=== PATIENT | female | born 1965 | race American Indian/Alaskan Native ===

== ENCOUNTER 2018-02-24 15:40 | Emergency (ER) | payer OTHER, BC ==
[2018-02-24] MEDS ORDERED: MOTRIN PO ONE (17:26)
--- NOTE | 2018-02-24 17:28 | Emergency Department Report ---
Blank Doc - Documentation Documentation: Patient is a 52-year-old black female who is presenting status post fall. Patient states that she was helping move a stretcher in the stretcher were ran over her first 2 toes. Patient then fell braced herself with her left wrist. Patient is having pain in both of these areas. There was no head and is no loss of consciousness. She will have x-rays performed rule out fracture
--- NOTE | 2018-02-24 19:24 | XRay Report ---
FINAL REPORT PROCEDURE: XR FOOT 3+V RT TECHNIQUE: RIGHT foot radiographs, AP, lateral, and oblique views. CPT 01928 HISTORY: Crush injury. COMPARISON: No prior studies are available for comparison. FINDINGS: Fracture (s) and/or Dislocation(s): Lucency through the 5th metatarsal head with well corticated margins. Mild medial displacement of the distal fracture fragment in relation to the proximal fracture fragment. Alignment: Normal . Joint space(s): Normal . Soft tissues: Normal . Bone mineralization: Normal . Foreign bodies: None . Calcaneal spurring: Plantar spur. IMPRESSION: Posttraumatic deformity of the 5th metatarsal head, although may be chronic with an element of mal/nonunion. Consider clinical correlation.
--- NOTE | 2018-02-24 19:41 | XRay Report ---
FINAL REPORT PROCEDURE: XR WRIST 2V LT TECHNIQUE: LEFT wrist radiographs, AP and lateral views. HISTORY: Fall injury. COMPARISON: No prior studies are available for comparison. FINDINGS: Fracture(s)and/or Dislocation(s): Subtle lucency about the hook of the hamate. Subtle lucency through the midbody of the scaphoid. Alignment: Normal. Joint space(s): Mild narrowing of the 1st carpometacarpal joint. Soft tissues: Normal. Bone mineralization: Normal. Foreign bodies: None. IMPRESSION: Subtle lucency through the hook of the hamate and the midbody of the scaphoid, could be related to patient positioning. Limited portable radiographs. Recommend dedicated repeat full wrist series or CT scan for further characterization if there is concern for subtle fractures. Mild degenerative change.
[2018-02-24 20:00] VITALS: BP 116/73
--- NOTE | 2018-02-24 20:07 | Emergency Department Report ---
ED Lower Extremity HPI - General Chief Complaint: Extremity Injury, Lower Stated Complaint: FOOT/WRIST INJURY Time Seen by Provider: 02/24/18 17:26 Source: patient Mode of arrival: Wheelchair Limitations: No Limitations - History of Present Illness Initial Comments: Patient is a 52-year-old black female who is presenting status post fall. Patient states that she was helping move a stretcher in the stretcher were ran over her first 2 toes. Patient then fell braced herself with her left wrist. Patient is having pain in both of these areas. Patient reports that this happened while she was at work today. She denies any remote trauma to her foot. She reports no past medical history. Patient ports most of the pain is on that great toe of her right foot. She describes the pain as being in tingling burning and aching. Reports the pain is constant but since she's had that ibuprofen is now intermittent with putting her foot and her shoe. Complaint: foot injury (right) Injury: Foot: Left Place: work Severity scale (0 -10): 7 Improves With: NSAID Worsens With: weight bearing Context: direct blow Other Symptoms: loss of consciousness - Related Data Previous Rx's Medication Instructions Recorded Last Taken Type Cephalexin [Keflex] 500 mg PO BID #14 capsule 02/24/18 Unknown Rx Ibuprofen [Motrin 800 MG tab] 800 mg PO Q8HR PRN #30 tablet 02/24/18 Unknown Rx Allergies Allergy/AdvReac Type Severity Reaction Status Date / Time No Known Allergies Allergy Unverified 09/13/15 07:59 ED Review of Systems ROS: Stated complaint: FOOT/WRIST INJURY Other details as noted in HPI Constitutional: denies: chills, fever Cardiovascular: denies: chest pain, palpitations Endocrine: no symptoms reported Gastrointestinal: denies: abdominal pain, nausea, diarrhea Musculoskeletal: denies: back pain, joint swelling, arthralgia Neurological: denies: headache, weakness, paresthesias ED Past Medical Hx - Past Medical History Previous Medical History?: No - Surgical History Hx Appendectomy: Yes - Social History Smoking Status: Never Smoker Substance Use Type: None - Medications Home Medications: Home Medications Medication Instructions Recorded Confirmed Last Taken Type Cephalexin [Keflex] 500 mg PO BID #14 capsule 02/24/18 Unknown Rx Ibuprofen [Motrin 800 MG tab] 800 mg PO Q8HR PRN #30 tablet 02/24/18 Unknown Rx ED Physical Exam - General Limitations: No Limitations General appearance: alert, in no apparent distress - Head Head exam: Present: atraumatic, normocephalic - Eye Eye exam: Present: normal appearance - ENT ENT exam: Present: mucous membranes moist - Expanded Lower Extremity Exam Right Hip exam: Present: normal inspection Upper Leg exam: Present: normal inspection Knee exam: Present: normal inspection Lower Leg exam: Present: normal inspection Ankle exam: Present: normal inspection Foot/Toe exam: Present: full ROM, tenderness (first metatarpal), abrasion ( great toe cuticle) ED Course Vital Signs 02/24/18 02/24/18 16:39 19:51 Temperature 98.1 F 98.2 F Pulse Rate 81 69 Respiratory 18 18 Rate Blood Pressure 120/77 116/73 Blood Pressure 120/77 [Left] O2 Sat by Pulse 9 L 98 Oximetry ED Lower Extremity MDM - Radiology Data Radiology results: report reviewed, image reviewed FINDINGS: Fracture(s)and/or Dislocation(s): Subtle lucency about the hook of the hamate. Subtle lucency through the midbody of the scaphoid. Alignment: Normal. Joint space(s): Mild narrowing of the 1st carpometacarpal joint. Soft tissues: Normal. Bone mineralization: Normal. Foreign bodies: None. IMPRESSION: Subtle lucency through the hook of the hamate and the midbody of the scaphoid, could be related to patient positioning. Limited portable radiographs. Recommend dedicated repeat full wrist series or CT scan for further characterization if there is concern for subtle fractures. Mild degenerative change. Transcribed By: MAEVE Dictated By: JV MOON MD Electronically Authenticated By: JV MOON MD Signed Date/Time: 02/24/181936 DD/ 36 TD/TT: 02/24/181936 FINDINGS: Fracture (s) and/or Dislocation(s): Lucency through the 5th metatarsal head with well corticated margins. Mild medial displacement of the distal fracture fragment in relation to the proximal fracture fragment. Alignment: Normal . Joint space(s): Normal . Soft tissues: Normal . Bone mineralization: Normal . Foreign bodies: None . Calcaneal spurring: Plantar spur. IMPRESSION: Posttraumatic deformity of the 5th metatarsal head, although may be chronic with an element of mal/nonunion. Consider clinical correlation. Transcribed By: [facility] Dictated By: JV MOON MD Electronically Authenticated By: JV MOON MD Signed Date/Time: 02/24/181920 DD/ 20 TD/TT: 02/24/181920 - Medical Decision Making He has been evaluated but this provider fast track. 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 Patient denies any pain or tenderness to that area. Discussed the patient that her wrists x-ray was negative for any acute fractures. Discussed the patient I will discharge her on antibiotics since she has an abrasion to her great toe as well as place her on ibuprofen for pain. Discussed patient with take her out of work for the next 24-48 hours. Discussed the patient to elevate her foot place ice to take medication and follow-up with her primary care provider if symptoms persist or gets worse. Patient verbalized understanding. Critical care attestation.: If time is entered above; I have spent that time in minutes in the direct care of this critically ill patient, excluding procedure time. ED Disposition Clinical Impression: Acute pain of left wrist Injury of right great toe Qualifiers: Encounter type: initial encounter Qualified Code(s): S99.921A - Unspecified injury of right foot, initial encounter Abrasion of toe of right foot Qualifiers: Encounter type: initial encounter Qualified Code(s): S90.414A - Abrasion, right lesser toe(s), initial encounter Disposition: TO HOME OR SELFCARE Is pt being admited?: No Does the pt Need Aspirin: No Condition: Stable Instructions: Arthralgia (ED), Abrasion (ED), Wrist Injury (ED) Additional Instructions: Please complete antibiotics as prescribed. Please take ibuprofen as prescribed. Please follow-up with her primary care provider if symptoms persist or gets worse. Prescriptions: Cephalexin [Keflex] 500 mg PO BID #14 capsule Ibuprofen [Motrin 800 MG tab] 800 mg PO Q8HR PRN #30 tablet PRN Reason: Pain Referrals: PRIMARY MD FRANCISCO JAVIER [Primary Care Provider] - 3-5 Days JANELL EVANS MD [Staff Physician] - 3-5 Days Forms: Work/School Release Form(ED)
== END 2018-02-24 20:40 | disposition home or self-care (01) ==
LOC: ED 15:40
DX: S90.414A Abrasion, right lesser toe(s), initial encounter (principal); S99.921A Unspecified injury of right foot, initial encounter; Z90.49 Acquired absence of other specified parts of digestive tract; X58.XXXA Exposure to other specified factors, initial encounter; Y93.89 Activity, other specified; Y99.8 Other external cause status; Y92.89 Other specified places as the place of occurrence of the external cause

== ENCOUNTER 2018-04-10 08:35 | Outpatient (CLI) | payer BC ==
--- NOTE | 2018-04-10 13:03 | Mammography Report ---
BILATERAL DIGITAL SCREENING MAMMOGRAM with CAD: 04/10/18 08:35:00 CLINICAL: Routine screening. COMPARISON: 09/13/15 FINDINGS: There are bilateral scattered areas of fibroglandular density.No mass, architectural distortion or suspicious calcifications. IMPRESSION: No mammographic evidence of malignancy. BI-RADS CATEGORY: 1 -- Negative RECOMMENDATION: Routine mammographic screening in one year. COMMENT: Patient follow-up letters are generated by our [facility] application.
== END 2018-04-10 08:36 | disposition home or self-care (01) ==
LOC: MAMMO 08:35
PROVIDERS: ATTEND Family Medicine
DX: Z12.31 Encounter for screening mammogram for malignant neoplasm of breast (principal); Z90.49 Acquired absence of other specified parts of digestive tract
CPT/HCPCS: 77067

== ENCOUNTER 2018-10-31 12:44 | Emergency (ER) | payer BC ==
[2018-10-31 13:05] VITALS: BP 130/82
[2018-10-31 14:01] LABS: Bilirubin,Urine NEG (Negative); Blood,Urine NEG (Negative); Color,Urine Yellow (Yellow); Mucus,Urine FEW /HPF; WBC,Urine < 1.0 /HPF (0.0-6.0)
--- NOTE | 2018-10-31 14:31 | Emergency Department Report ---
ED Back Pain/Injury HPI - General Chief Complaint: Back Pain/Injury Stated Complaint: BACK PAIN EXTREME Time Seen by Provider: 10/31/18 14:03 Source: patient Limitations: No Limitations - History of Present Illness Initial Comments: Mrs. Meyers is a healthy 53-year-old female who has had back pain for the last 10 months. 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 She has worked at [employer] for 11 years. She has been a nurse for over 20 years. She's had lower back pain which has resolved with ibuprofen and Tylenol normally the past. She takes the medications every few days especially before shift. However over the last week ibuprofen Tylenol did not completely relieve the pain. The medications provided some relief. Hot shower also provided some relief. Pain is currently 5 out of 10. Located in lower central back with radiation to right and left flank. More so on the right. She denies leg weakness. She denies fever. She denies weight loss or trauma. She denies bowel or bladder incontinence. No history of motor vehicle accidents. However she does recall a fall on the job in January related to a toe injury. Due to social stressors dealing with family matters, she has gained 30 pounds in the last 1 to 1-1/2 years. Her previous PCP was Dr. Mccoy. Now she is in search for a new primary care physician. She has seen orthopedic surgeon Dr. Braxton the past for her right toe injury. MD Complaint: back pain -: Gradual, days(s) (5), month(s) (10) Similar Symptoms Previously: Yes Place: home, work Radiation: flank Severity: moderate Severity scale (0 -10): 5 Quality: aching Consistency: constant, intermittent Improves With: medication, other (heat) Worsens With: movement Associated Symptoms: denies other symptoms - Related Data Previous Rx's Medication Instructions Recorded Last Taken Type Cephalexin [Keflex] 500 mg PO BID #14 capsule 02/24/18 Unknown Rx Ibuprofen [Motrin 800 MG tab] 800 mg PO Q8HR PRN #30 tablet 02/24/18 Unknown Rx Cyclobenzaprine [Flexeril] 10 mg PO TID PRN #20 tablet 10/31/18 Unknown Rx HYDROcodone/APAP 5-325 [Eskridge 1 each PO Q6HR PRN #10 tablet 10/31/18 Unknown Rx 5/325] Allergies Allergy/AdvReac Type Severity Reaction Status Date / Time No Known Allergies Allergy Verified 10/31/18 13:01 ED Review of Systems ROS: Stated complaint: BACK PAIN EXTREME Other details as noted in HPI Comment: All other systems reviewed and negative Constitutional: denies: fever, malaise Respiratory: denies: cough Cardiovascular: denies: chest pain Gastrointestinal: denies: abdominal pain ED Past Medical Hx - Past Medical History Previous Medical History?: No - Surgical History Past Surgical History?: Yes Hx Appendectomy: Yes - Family History Family history: other (noncontributory to today's presentation) - Social History Smoking Status: Never Smoker Substance Use Type: None - Medications Home Medications: Home Medications Medication Instructions Recorded Confirmed Last Taken Type Cephalexin [Keflex] 500 mg PO BID #14 capsule 02/24/18 Unknown Rx Ibuprofen [Motrin 800 MG tab] 800 mg PO Q8HR PRN #30 tablet 02/24/18 Unknown Rx Cyclobenzaprine [Flexeril] 10 mg PO TID PRN #20 tablet 10/31/18 Unknown Rx HYDROcodone/APAP 5-325 [Eskridge 1 each PO Q6HR PRN #10 tablet 10/31/18 Unknown Rx 5/325] ED Physical Exam - General Limitations: No Limitations General appearance: alert, in no apparent distress - Head Head exam: Present: atraumatic, normocephalic - Eye Eye exam: Present: normal appearance - ENT ENT exam: Present: mucous membranes moist - Neck Neck exam: Present: normal inspection - Respiratory Respiratory exam: Present: normal lung sounds bilaterally. Absent: respiratory distress, wheezes, rales, rhonchi - Cardiovascular Cardiovascular Exam: Present: regular rate, normal rhythm, normal heart sounds. Absent: systolic murmur, diastolic murmur, rubs, gallop - GI/Abdominal GI/Abdominal exam: Present: soft, normal bowel sounds. Absent: distended, tenderness, guarding, rebound - Extremities Exam Extremities exam: Present: normal inspection - Back Exam Back exam: Present: full ROM, muscle spasm. Absent: tenderness, CVA tenderness (R), CVA tenderness (L), paraspinal tenderness, vertebral tenderness - Neurological Exam Neurological exam: Present: alert, oriented X3 - Expanded Neurological Exam Expanded Motor strength exam: RLE: 5, LLE: 5 - Psychiatric Psychiatric exam: Present: normal affect, normal mood - Skin Skin exam: Present: warm, dry, intact, normal color. Absent: rash ED Course Vital Signs 10/31/18 13:02 Temperature 98.0 F Pulse Rate 86 Respiratory 16 Rate Blood Pressure 130/82 O2 Sat by Pulse 100 Oximetry ED Medical Decision Making - Medical Decision Making Mrs. Cody is a very pleasant 53-year-old female who has had 10 months of lower back pain which has worsened over the last several days. I am concerned for lumbar degenerative disc disease. Also concern for lumbar strain due to repetitive lifting bending on the job. Due to 30 pound weight gain over the last 1-1.5 years, she would benefit from physical therapy including core strengthening exercise. I strongly encouraged evaluation by Dr. Braxton in the outpatient setting. I have prescribed Eskridge Flexeril. Today in the ED she received Toradol and Eskridge. Critical care attestation.: If time is entered above; I have spent that time in minutes in the direct care of this critically ill patient, excluding procedure time. ED Disposition Clinical Impression: Back pain Disposition: - TO HOME OR SELFCARE Is pt being admited?: No Does the pt Need Aspirin: No Condition: Stable Instructions: Acute Low Back Pain (ED) Prescriptions: Cyclobenzaprine [Flexeril] 10 mg PO TID PRN #20 tablet PRN Reason: Muscle Spasm HYDROcodone/APAP 5-325 [Eskridge 5/325] 1 each PO Q6HR PRN #10 tablet PRN Reason: Pain Referrals: JANELL BRAXTON MD [Staff Physician] - 3-5 Days CED MADRIGAL MD [Staff Physician] - 3-5 Days
[2018-10-31] MEDS ORDERED: NORCO 5/325 PO ONE (14:32)
[2018-10-31] MEDS ORDERED: TORADOL IM ONE (14:32)
== END 2018-10-31 14:46 | disposition home or self-care (01) ==
LOC: ED 12:44
DX: M54.5 Low back pain (principal); Z90.49 Acquired absence of other specified parts of digestive tract
CPT/HCPCS: 81001; 96372; 99283; J1885

== ENCOUNTER 2018-11-10 16:04 | Outpatient (CLI) | payer BC ==
--- NOTE | 2018-11-10 17:42 | XRay Report ---
FINAL REPORT EXAM: XRAY LUMBAR COMPLETE HISTORY: low back pain TECHNIQUE: Lumbar spine five views PRIORS: None. FINDINGS: Vertebral bodies demonstrate normal height and alignment. The disc spaces are within normal limits. There is no evidence of spondylolisthesis. Transverse and spinous processes are intact SI joints are unremarkable. IMPRESSION: Negative lumbar spine series
== END 2018-11-10 16:05 | disposition home or self-care (01) ==
LOC: XRAY 16:04
PROVIDERS: ATTEND Orthopaedic Surgery
DX: M54.5 Low back pain (principal); Z90.49 Acquired absence of other specified parts of digestive tract
CPT/HCPCS: 72110

== ENCOUNTER 2020-09-18 06:11 | Day surgery (SDC) | payer BC ==
[~2020-09-18 06:11] MED LIST: ceFAZolin/Water 2 GM/20 ML 2 GM/20 ML SYRINGE IV NR
[2020-09-18] MEDS ORDERED: LIDOCAINE 1%/EPINEPHRINE 1:100,000 VIAL (20 ML) INFILTRATI ONE ×2 (06:29→08:42)
[2020-09-18] MEDS ORDERED: BACTERIOSTATIC SODIUM CHLORIDE 0.9% 30 ML VIAL INFILTRATI ONE (06:42)
[2020-09-18] MEDS ORDERED: LACTATED RINGERS 1,000 ML ONE (06:43)
[2020-09-18] MEDS ORDERED: ONDANSETRON 4 MG/2 ML INJ IV PRN (07:16)
[2020-09-18] MEDS ORDERED: HYDROmorphone 1 MG/1 ML INJ IV PRN ×2 (07:16)
--- NOTE | 2020-09-18 07:17 | Anesthesia Day of Surgery ---
Anesthesia Day of Surgery - Day of Surgery Patient Examined: Yes Patient H&P Reviewed: Yes Patient is NPO: Yes
--- NOTE | 2020-09-18 07:18 | Anesthesia Consultation ---
Anesthesia Consult and Med Hx Date of service: 09/18/20 - Airway Anesthetic Teeth Evaluation: Caps ROM Head & Neck: Adequate Mental/Hyoid Distance: Adequate Mallampati Class: Class II Intubation Access Assessment: Good - Pre-Operative Health Status ASA Pre-Surgery Classification: ASA2 Proposed Anesthetic Plan: General, MAC (MAC; GA if needed) - Pulmonary Hx Respiratory Symptoms: No (+2FS) - Central Nervous System Hx Psychiatric Problems: No - Hematic Hx Sickle Cell Disease: No - Other Systems Hx Cancer: No Hx Obesity: Yes
[2020-09-18] MEDS ORDERED: ROCURONIUM 50 MG/5 ML INJ IV ONE (07:25)
[2020-09-18] MEDS ORDERED: LIDOCAINE MPF (2%) 20 MG/1 ML VIAL 5 ML ONE (07:25)
[2020-09-18] MEDS ORDERED: fentaNYL 100 MCG/2 ML INJ ONE (07:26)
[2020-09-18] MEDS ORDERED: propofoL 200 MG/20 ML VIAL IV ONE (07:27)
[2020-09-18] MEDS ORDERED: LACTATED RINGERS 1,000 ML IV SCH (07:30)
[2020-09-18] MEDS ORDERED: HYDROmorphone 1 MG/1 ML INJ ONE (08:52)
[2020-09-18] MEDS ORDERED: SODIUM CHLORIDE P/F VIAL 10 ML 10 ML ONE (08:53)
[2020-09-18] MEDS ORDERED: BACITRACIN ZINC OINT 28.4 GM TP ONE (09:06)
[2020-09-18] MEDS ORDERED: NEOSTIGMINE 10MG/10 ML INJ MDV ONE (09:19)
[2020-09-18] MEDS ORDERED: GLYCOPYRROLATE 0.4 MG/2 ML INJ ONE (09:20)
[2020-09-18] MEDS ORDERED: dexAMETHasone 20 MG/5 ML VIAL ONE (09:30)
[2020-09-18] MEDS ORDERED: PHENYLEPHRINE/NS 1,000 MCG/10 ML SYRINGE (OR USE) IV ONE (09:36)
--- NOTE | 2020-09-18 09:58 | Operative Report ---
Operative Report Operative Report: Plastic surgery operative report Preoperative diagnosis: Multiple subcutaneous lesions of the scalp, with 1 c entral mid temporal eroding lesion suspicious behavior Postoperative diagnosis: Same Procedure: Excision of scalp lesion, 4x6cm, closure with rotational scalp flap. Surgeon: Genny Chadwick MD Belt Loop Maker: none Anesthesia: General Specimen: Scalp lesion, excised Estimated blood loss: 25 cc Indications: This patient is a 55-year-old -[place] female who presented to my office with complaint of multiple lesions of her scalp which have been present for several years, but in particular she was referred by the wound care center due to one that was leaking and eroding through the skin of her scalp. Patient states that her father had similar lesions of his scalp his entire life that she could remember, but there was no certain tissue diagnosis for his disease. She did not have pain, denied infection, there was bleeding from the erosion of the lesion that required her to wear dressings every day on her head. Patient desired removal of this lesion as well as any other lesions that could be removed at the same time. On examination she was found to have a approximately 4 x 6 cm circular lesion that appeared to be within the skin only and not connected to underlying periosteum. There was limited mobility. The lesion had eroded through the skin of the scalp and had pinpoint bleeding in certain areas. There was also necrosis in certain areas. There was no foul odor, but the need for constant wound dressing was evident. The decision was made to take the patient to the operating room and do an excision of the scalp lesion with the possibility of a rotational flap closure due to the size of the defect that would result. Patient was informed that we would not be able to remove all of her stock lesions at once, given the blood supply and anatomy of the scalp. She was advised that we would do serial excisions beginning with the most bothersome lesion first and upon healing come back for further excision of the remaining lesions, in particular a very large one of the right occipital scalp. Benefits as well as the risks of the procedure including but not limited to: Infection, bleeding, hematoma, seroma, alopecia, scarring, wound dehiscence, recurrence of excised lesions, and the need for further surgery were discussed with the patient who expressed her understanding of the procedure, the inherent risks and desired to proceed with surgery. Informed consent was obtained. Patient was marked in preoperative holding area. Procedure: After review of pertinent history and physical exam findings the patient was brought into the operating room and placed supine on the OR table. After induction of adequate general endotracheal anesthesia, the scalp was shaved and prepped and draped in the usual sterile surgical fashion. To begin, the proposed excision was marked and the rotational flap that might be necessary to close it was also mapped and we began with injection of 1% lidocaine with epinephrine into the subcutaneous tissue surrounding the lesion to be excised. After allowing adequate time for epinephrine effect, using a #10 blade a full- thickness of skin excision of an ellipse of skin around the lesion giving a very minimal margin of 5 mm was excised, measuring 4 x 6 cm in total. Scalp flaps were then elevated using electrocautery to facilitate closure but it was noted that despite extensive undermining there was not adequate mobility of the scalp due to neighboring subcutaneous scalp lesions that limited the pliability of surrounding skin. Therefore the decision was made to proceed with a rotational scalp flap which was marked for a total of 10 x 14 cm to the right of the scalp defect. This area was also infiltrated with 1% lidocaine with epinephrine and incisions were made with a #10 blade and electrocautery was used to maintain hemostasis. Once elevated and rotated into the defect, scoring was performed to increase the stretch and pliability of the rotational flap. This helped us to successfully begin primary closure of the flap skin to the medial border of the defect using first 2-0 Monocryl sutures placed in the fascia in a buried fashion. This was followed by 2-0 nylon sutures placed in a vertical mattress fashion. Once her mattress stitches were in place, we began placing interrupted simple sutures and the remainder of the incision to approximate skin. Laterally, skin was closed with 3-0 nylon in a running fashion. Once all incisions were closed, they were cleansed with sterile saline and dressed with Bacitracin ointment and Xeroform gauze, followed by fluff gauze and a Kerlix head wrap. Patient was then awakened from general anesthesia and transferred to the recovery room in stable condition. There were no complications. All sponge, needle and instrument counts were correct at the end of the case.
--- NOTE | 2020-09-18 10:02 | Post Anesthesia Evaluation ---
- Post Anesthesia Evaluation Patient Participated: Yes Airway Patent: Yes Stable Respiratory Function: Yes Nausea/Vomiting: No Temp > 96.8F: Yes Pain Manageable: Yes Adequeate Hydration: Yes Anesthesia Complications: No Block Receding Appropriately: Not Applicable Patient on Ventilator: No
[2020-09-18 10:18] VITALS: BP 130/67
== END 2020-09-18 06:12 | disposition home or self-care (01) ==
LOC: OR 06:11
PROVIDERS: ATTEND Plastic Surgery
DX: L98.8 Other specified disorders of the skin and subcutaneous tissue (principal); Z20.828 Contact with and (suspected) exposure to other viral communicable diseases; E66.9 Obesity, unspecified; M19.90 Unspecified osteoarthritis, unspecified site; Z98.890 Other specified postprocedural states; Z79.899 Other long term (current) drug therapy; Z90.49 Acquired absence of other specified parts of digestive tract; Z68.41 Body mass index [BMI] 40.0-44.9, adult
CPT/HCPCS: 11426; 14021; 88305; J0690; J1100; J1170; J2370; J2405; J2704; J2710; J3010; J7120; U0003

== ENCOUNTER 2020-10-09 07:41 | Outpatient (CLI) | payer BC ==
--- NOTE | 2020-10-09 09:13 | Mammography Report ---
DIGITAL SCREENING MAMMOGRAM WITH CAD, 10/09/2020 CLINICAL INFORMATION / INDICATION: Routine screening mammography. TECHNIQUE: Digital bilateral 2D mammography was obtained in the craniocaudal and mediolateral obliqu e projections. This examination was interpreted with the benefit of Computer-Aided Detection analysis . COMPARISON: 04/10/2018, 09/13/2015 FINDINGS: Breast Density: The breasts are almost entirely fatty. No dominant mass, suspicious calcifications, or architectural distortion in either breast. IMPRESSION: No mammographic evidence of malignancy. Follow up recommendation: Routine yearly BI-RADS Category 1: Negative. A "normal" or negative report should not discourage follow up or biopsy of a clinically significant f inding. A written summary of these findings will be mailed to the patient. The patient will be entered into a mammography reporting system which will generate a reminder letter for the patient's next appointmen t at the appropriate interval. The [employer] recommends yearly mammograms starting at age 40 and continuing as l britney as a woman is in good health. Breast MRI is recommended for women with an approximate 20-25% or greater lifetime risk of breast cancer, including women with a strong family history of breast or ova helen cancer or who have been treated for Hodgkin's disease. Signer Name: Josemanuel Ann MD Signed: 10/09/2020 9:08 AM Workstation Name: [id number]
== END 2020-10-09 07:42 | disposition home or self-care (01) ==
LOC: MAMMO 07:41
PROVIDERS: ATTEND Family Medicine
DX: Z12.31 Encounter for screening mammogram for malignant neoplasm of breast (principal)
CPT/HCPCS: 77067

== ENCOUNTER 2020-11-03 10:06 | Outpatient (CLI) | payer BC ==
[2020-11-03 10:30] LABS: Basophils # (Auto) 0.1 K/mm3 (0.0-0.1); Eosinophils # (Auto) 0.1 K/mm3 (0.0-0.4); Eosinophils % (Auto) 2.5 % (0.0-4.3); Hematocrit 38.7 % (30.3-42.9); Hemoglobin 12.6 gm/dl (10.1-14.3); Lymphocytes # (Auto) 2.8 K/mm3 (1.2-5.4); Lymphocytes % (Auto) 47.4 % (13.4-35.0); Mean Corpuscular HGB Conc 33 % (30-34); Mean Corpuscular Volume 87 fl (79-97); Monocytes # (Auto) 0.4 K/mm3 (0.0-0.8); Monocytes % (Auto) 7.4 % (0.0-7.3); Platelet Count 304 K/mm3 (140-440); Red Blood Count 4.43 M/mm3 (3.65-5.03)
[2020-11-03 10:51] LABS: Alanine Aminotransferase 11 units/L (7-56); Albumin 4.3 g/dL (3.9-5); Blood Urea Nitrogen 11 mg/dL (7-17); Calcium 9.1 mg/dL (8.4-10.2); Chol/HDL Ratio 5.24 %; HDL Cholesterol 33 mg/dL (40-59); Hemolysis Index 18; LDL Cholesterol,Direct 150 mg/dL (50-130)
[2020-11-03 10:53] LABS: BUN/Creatinine Ratio 18
== END 2020-11-03 10:07 | disposition home or self-care (01) ==
LOC: LAB 10:06
PROVIDERS: ATTEND Family Medicine
DX: Z00.00 Encounter for general adult medical examination without abnormal findings (principal)
CPT/HCPCS: 36415; 80053; 80061; 82306; 82607; 82747; 83036; 84443; 85025; 86803

== ENCOUNTER 2021-05-07 11:59 | Outpatient (CLI) | payer BC ==
[2021-05-07 12:57] LABS: Blood Urea Nitrogen 10 mg/dL (7-17); Calcium 9.4 mg/dL (8.4-10.2); Hemolysis Index 143
[2021-05-07 12:58] LABS: BUN/Creatinine Ratio 20
[2021-05-07 13:06] LABS: Hematocrit 38.8 % (30.3-42.9); Hemoglobin 12.8 gm/dl (10.1-14.3); Mean Corpuscular HGB Conc 33 % (30-34); Mean Corpuscular Volume 90 fl (79-97); Platelet Count 262 K/mm3 (140-440); Red Blood Count 4.33 M/mm3 (3.65-5.03); Red Cell Distribution Width 14.8 % (13.2-15.2)
[2021-05-07 13:40] LABS: Bacteria,Urine 1+ /HPF (Negative); Mucus,Urine FEW /HPF
[2021-05-07 13:41] LABS: Bilirubin,Urine NEG (Negative); Blood,Urine NEG (Negative); Color,Urine Yellow (Yellow); Protein,Urine <15 mg/dL mg/dL (Negative); Urobilinogen,Urine < 2.0 mg/dL (<2.0)
== END 2021-05-07 12:00 | disposition home or self-care (01) ==
LOC: LAB 11:59
PROVIDERS: ATTEND Plastic Surgery
DX: Z01.818 Encounter for other preprocedural examination (principal)
CPT/HCPCS: 36415; 80048; 81001; 84703; 85027; 87086

== ENCOUNTER 2021-05-17 05:51 | Day surgery (SDC) | payer BC ==
[2021-05-17] MEDS ORDERED: BACTERIOSTATIC SODIUM CHLORIDE 0.9% 30 ML VIAL INFILTRATI ONE (06:16)
[2021-05-17] MEDS ORDERED: LACTATED RINGERS 1,000 ML ONE (06:16)
[2021-05-17] MEDS ORDERED: LACTATED RINGERS 1,000 ML IV SCH ×2 (06:45→07:00)
[2021-05-17 06:56] LABS: Bilirubin,Urine NEG (Negative); Blood,Urine NEG (Negative); Color,Urine Yellow (Yellow); Mucus,Urine 1+ /HPF; Protein,Urine <15 mg/dL mg/dL (Negative); Urobilinogen,Urine < 2.0 mg/dL (<2.0)
[2021-05-17 07:01] LABS: Hemoglobin 13.2 gm/dl (10.1-14.3); Mean Corpuscular HGB Conc 33 % (30-34); Mean Corpuscular Volume 89 fl (79-97); Platelet Count 248 K/mm3 (140-440); Red Cell Distribution Width 14.7 % (13.2-15.2)
[2021-05-17] MEDS ORDERED: propofoL 200 MG/20 ML VIAL IV ONE (07:04)
[2021-05-17] MEDS ORDERED: ePHEDrine SULFATE 50 MG/1 ML INJ ONE (07:04)
[2021-05-17] MEDS ORDERED: HYDROmorphone 1 MG/1 ML INJ ONE (07:04)
[2021-05-17] MEDS ORDERED: fentaNYL 100 MCG/2 ML INJ ONE (07:04)
--- NOTE | 2021-05-17 07:08 | Anesthesia Consultation ---
Anesthesia Consult and Med Hx Date of service: 05/17/21 - Airway Anesthetic Teeth Evaluation: Good, Partials Mental/Hyoid Distance: Adequate Mallampati Class: Class II Intubation Access Assessment: Good - Pulmonary Exam CTA: Yes - Cardiac Exam Cardiac Exam: RRR - Pre-Operative Health Status ASA Pre-Surgery Classification: ASA2 Proposed Anesthetic Plan: General - Pulmonary Hx Smoking: No Hx Respiratory Symptoms: No (+2FS) Hx Sleep Apnea: No (KIMMY PRE SCREEN LOW RISK) - Cardiovascular System Hx Hypertension: No - Central Nervous System Hx Psychiatric Problems: No - Hematic Hx Anemia: No Hx Sickle Cell Disease: No - Other Systems Hx Cancer: No Hx Obesity: Yes
--- NOTE | 2021-05-17 07:08 | Anesthesia Day of Surgery ---
Anesthesia Day of Surgery - Day of Surgery Patient Examined: Yes Patient H&P Reviewed: Yes Patient is NPO: Yes
[2021-05-17 07:16] LABS: Blood Urea Nitrogen 13 mg/dL (7-17); Calcium 9.4 mg/dL (8.4-10.2); Hemolysis Index 54
[2021-05-17 07:17] LABS: BUN/Creatinine Ratio 26
[2021-05-17] MEDS ORDERED: SCOPOLAMINE TRANSDERMAL PATCH 72 HR TD ONE (07:34)
[2021-05-17] MEDS ORDERED: LIDOCAINE 2%/EPINEPHRINE 1:200,000 VIAL (20 ML) INFILTRATI ONE (07:57)
[2021-05-17] MEDS ORDERED: LIDOCAINE 1.5% /EPINEPHRINE 1:200,000 AMP (5 ML) INFILTRATI ONE (07:57)
[2021-05-17] MEDS ORDERED: LIDOCAINE 1%/EPINEPHRINE 1:100,000 VIAL (20 ML) INFILTRATI ONE (07:58)
[2021-05-17] MEDS ORDERED: MIDAZOLAM 2 MG/2 ML INJ IV NR (08:00)
[2021-05-17] MEDS ORDERED: LIDOCAINE 2%/EPINEPHRINE 1:100,000 VIAL (20 ML) INFILTRATI ONE (08:50)
[2021-05-17] MEDS ORDERED: SODIUM CHLORIDE 0.9% IRR 1,500 ML BOTTLE IR ONE (08:51)
[2021-05-17] MEDS ORDERED: SUGAMMADEX SODIUM 200 MG/2 ML VIAL IV ONE (09:17)
--- NOTE | 2021-05-17 10:16 | Operative Report ---
Operative Report Operative Report: Plastic Surgery Operative Report Preoperative diagnosis: Multiple subcutaneous lesions of the scalp, with 1 large 10cm occipital scalp Postoperative diagnosis: Same Procedure: Excision of scalp lesion, [id number], complex closure Surgeon: Genny Chadwick MD School Clerk: none Anesthesia: General Specimen: Scalp lesion, excised Estimated blood loss: 30 cc Indications: This patient is a 55-year-old -[place] female who presented to my office with complaint of multiple lesions of her scalp which have been present for several years. She had a lesion excised last year and wanted to continue with excision of the next most bothersome lesion, on her occipital scalp. On examination she was found to have a approximately 10 x 10cm soft, circular lesion that was mobile and not connected to underlying periosteum. The overlying skin was intact, hair follicles present except in the middle, which was consistent with slow steady growth/tissue expansion. There was no drainage or foul odor. The decision was made to take the patient to the operating room and do an excision of the scalp lesion with the possibility of a rotational flap closure due to the size of the defect that might result. Patient was informed that we would not be able to remove all of her scalp lesions at once, given the blood supply and anatomy of the scalp. She was advised that we would do serial excisions beginning with the most bothersome lesion first and upon healing come back for further excision of the remaining lesions. Benefits as well as the risks of the procedure including but not limited to: Infection, bleeding, hematoma, seroma, alopecia, scarring, wound dehiscence, recurrence of excised lesions, and the need for further surgery were discussed with the patient who expressed her understanding of the procedure, the inherent risks and desired to proceed with surgery. Informed consent was obtained. Patient was marked in preoperative holding area. Procedure: After review of pertinent history and physical exam findings the patient was brought into the operating room and placed supine on the OR table. After induction of adequate general endotracheal anesthesia, the scalp was shaved and prepped and draped in the usual sterile surgical fashion. To begin, the proposed excision was marked and we began with injection of 2% lidocaine with epinephrine into the subcutaneous tissue surrounding the lesion to be excised. After allowing adequate time for epinephrine effect, using a #15 blade a full-thickness of skin excision of an ellipse of skin within the lesion was excised. As dissection continued with electrocautery, a cyst wall was encountered and inadvertently partially opened. Straw colored fluid with small pieces of caseous material began to pour out, approximately 30cc. This opening was pinched closed with a forceps and dissection continued around the lesion. Once the lesion was completely excised, we turned our attention to hemostasis, which was achieved using electrocautery. The defect, which was down to the level of the posterior occipital muscle fascia, was then thoroughly irrigated with saline. We then measured and excised another 1cm wide strip of excess skin to facilitate an aesthetically pleasing linear closure. Closure was performed in 3 layers beginning with a 2-0 Monocryl to eliminate the space left behind by the lesion, followed by deep dermal 2-0 Monocryl sutures and 3-0 Monoderm Quill suture in 2 layers. This was followed by Dermabond to seal the incision. Patient was then awakened from general anesthesia and transferred to the recovery room in stable condition. There were no complications. All sponge, needle and instrument counts were correct at the end of the case.
[2021-05-17] MEDS ORDERED: HYDROcodone/ACETAMINOPHEN 7.5-325MG TAB PO PRN (10:17)
[2021-05-17] MEDS ORDERED: ONDANSETRON 4 MG/2 ML INJ IV PRN (10:18)
[2021-05-17] MEDS ORDERED: diphenhydrAMINE 50 MG/ML VIAL ONE (10:49)
[2021-05-17] MEDS ORDERED: diphenhydrAMINE 50 MG/ML VIAL IV PRN (10:51)
[2021-05-17 12:20] VITALS: BP 137/81
--- NOTE | 2021-05-17 13:04 | Post Anesthesia Evaluation ---
- Post Anesthesia Evaluation Patient Participated: Yes Airway Patent: Yes Stable Respiratory Function: Yes Nausea/Vomiting: Yes Temp > 96.8F: Yes Pain Manageable: Yes Adequeate Hydration: Yes Anesthesia Complications: No Block Receding Appropriately: Not Applicable Patient on Ventilator: No
== END 2021-05-17 12:45 | disposition home or self-care (01) ==
LOC: OR 05:51
PROVIDERS: ATTEND Plastic Surgery
DX: L72.9 Follicular cyst of the skin and subcutaneous tissue, unspecified (principal); D23.4 Other benign neoplasm of skin of scalp and neck; E66.9 Obesity, unspecified; M19.90 Unspecified osteoarthritis, unspecified site; Z79.899 Other long term (current) drug therapy; Z98.890 Other specified postprocedural states
CPT/HCPCS: 11426; 13121; 13122; 36415; 80048; 81001; 85027; 88304; J1170; J1200; J2250; J2405; J2704; J3010; J7120